=== PATIENT | male | born 1965 | race Caucasian/White ===

== ENCOUNTER 2017-05-15 11:15 | Day surgery (SDC) | payer OTHER ==
[~2017-05-15] VITALS: Ht 182.9 cm; Wt 103.4 kg
[~2017-05-15 11:15] MED LIST: HYDR12.58 PO; HYDROmorphone 2 MG/ML VIAL IV PRN; IV RINGERS,LACTATED 1000ML 1,000 ML IV SCH; LIDOCAINE 1% PF 2 ML VIAL. ID PRN; MORPHINE SULFATE 2 MG/ML DISP.SYRIN. IV PRN; ONDANSETRON PF 4 MG/2 ML VIAL. IV PRN; PROCHLORPERAZINE 10 MG/2 ML VIAL. IV PRN; fentaNYL PF VIAL 100 MCG/2 ML VIAL IV PRN
[2017-05-15] MEDS ORDERED: ROCURONIUM 100 MG/10 ML VIAL. ONE (11:58)
[2017-05-15] MEDS ORDERED: SUCCINYLCHOLINE 200 MG/10 ML VIAL. ONE (11:58)
[2017-05-15] MEDS ORDERED: PROPOFOL 20 ML IV ONE (11:58)
[2017-05-15] MEDS ORDERED: LIDOCAINE 2% PF Vial for OR 5 ML VIAL. ONE (11:58)
[2017-05-15] MEDS ORDERED: fentaNYL PF VIAL 100 MCG/2 ML VIAL ONE (12:00)
[2017-05-15] MEDS ORDERED: ONDANSETRON PF 4 MG/2 ML VIAL. ONE (13:55)
[2017-05-15] MEDS ORDERED: NEOSTIGMINE 10 MG/10 ML VIAL. ONE (13:55)
[2017-05-15] MEDS ORDERED: GLYCOPYRROLATE 1 MG/5 ML VIAL. ONE (13:55)
[2017-05-15] MEDS ORDERED: BUPIVACAINE-EPI 0.25%-1:200000 50 ML VIAL. INJ ONE (13:55)
[2017-05-15] MEDS ORDERED: ePHEDrine PF IN SALINE 50 MG/5 ML DISP.SYRIN IV ONE (14:01)
[2017-05-15] MEDS ORDERED: SEVOFLURANE 31 TO 60 MINUTES. IH ONE (14:27)
[2017-05-15] MEDS ORDERED: DEXAMETHASONE SOD PHOS 20 MG/5 ML VIAL. ONE (14:27)
--- NOTE | 2017-05-15 14:34 | PDOC4 ---
Operative Note Operative Note Date: 05/15/2017 Preoperative diagnosis: Recurrent left inguinal hernia Postoperative diagnosis: Same Procedure: Robotic-assisted laparoscopic left inguinal hernia repair with mesh Surgeon: Davy Specimen: None Dictation: Patient is a 52-year-old male who has a recurrent left inguinal hernia the procedure of robotic-assisted laparoscopic left inguinal hernia repair with mesh was explained to the patient in detail was benefits were also discussed including bleeding infection injury to intra-abdominal contents possibly necessitating further or open operations. He should seemed understanding gave both verbal and written consent to have the procedure performed. Patient was taken to the operating room placed in supine position general anesthesia was initiated once patient was asleep and intubated he was repositioned in the low lithotomy positioning and his abdomen was prepped and draped usual sterile fashion using ChloraPrep. Area just above the umbilicus injected with quarter percent Marcaine with epinephrine incisions made lead blade scalpel and a varies needle was placed within the abdomen creating pneumoperitoneum. This was complete and 8 mm da Pranay port was placed and the da Pranay camera was placed within the abdomen and abdomen was inspected no other at maladies were noted was noted that he had a left inguinal hernia with some area incarcerated sigmoid colon. At this 8 millimeter ports were placed one in the left mid abdomen one in the right mid abdomen. The da Pranay robot was brought in and docked all ports surgeon went to the robotic console and using a grasper and Endo Romario scissors the hernia content was reduced and the peritoneum was incised creating a flap inferiorly. [employer] director mesh was then placed over the hernia defect and the peritoneum was then closed over the mesh with a running V lock suture. The da Pranay robot was undocked all ports removed the pneumoperitoneum was reduced and the incision sites were all closed with 4 subcuticular Monocryl Mastisol Steri-Strips and island dressings were applied. Patient was waken expanded in the operating room taken to recovery in stable condition all sponge instrument needle counts listed as correct. Estimated blood loss 10 mL. KRISTIAN BISHOP MD May 15, 2017 14:34
--- NOTE | 2017-05-15 14:35 | DISCH ---
DISCHARGE INSTRUCTIONS Condition on Discharge Condition on Discharge: Stable Activity After Discharge Activity Instructions for Disc: Avoid exertion Other activity instructions: No lifting >20lbs for 2 weeks Diet after Discharge Diet after Discharge: Regular Wound Incision Care Other wound/incision instructi: May shower in 24 hours Contacting the after DC Call your doctor for: If your condition worsens Follow-Up Follow up with: Dr Bishop in 2 weeks KRISTIAN BISHOP MD May 15, 2017 14:35
[2017-05-15] MEDS ORDERED: KETOROLAC 30 MG/ML INJ. ONE (14:41)
[2017-05-15] MEDS: fentaNYL PF VIAL 100 MCG/2 ML VIAL IV PRN ×2 (14:46→14:53)
[2017-05-15] MEDS ORDERED: HYDR-971 PO (14:56)
[2017-05-15 15:39] VITALS: BP 139/74
[2017-05-15] MEDS ORDERED: HYDROcodone/APAP 5/325MG 1 TAB TABLET PO PRN (15:45)
== END 2017-05-15 16:27 | disposition home or self-care (01) ==
LOC: SURG 11:15
PROVIDERS: ATTEND Surgery
DX: K40.91 Unilateral inguinal hernia, without obstruction or gangrene, recurrent (principal); I10 Essential (primary) hypertension; M19.91 Primary osteoarthritis, unspecified site; Z87.39 Personal history of other diseases of the musculoskeletal system and connective tissue; Z72.89 Other problems related to lifestyle; Z72.0 Tobacco use
CPT/HCPCS: 49651; C1781; J0330; J0690; J0780; J1100; J1885; J2405; J2704; J2710; J3010; J3490; J2001

== ENCOUNTER → 2019-05-20 | Outpatient (CLI) | payer OTHER ==
[~2019-05-20] MED LIST changes: +HYDR-3164 PO; -HYDROmorphone 2 MG/ML VIAL IV PRN; -IV RINGERS,LACTATED 1000ML 1,000 ML IV SCH; -LIDOCAINE 1% PF 2 ML VIAL. ID PRN; -MORPHINE SULFATE 2 MG/ML DISP.SYRIN. IV PRN; -ONDANSETRON PF 4 MG/2 ML VIAL. IV PRN; -PROCHLORPERAZINE 10 MG/2 ML VIAL. IV PRN; -fentaNYL PF VIAL 100 MCG/2 ML VIAL IV PRN
--- NOTE | 2019-05-20 10:38 | RAD ---
EXT NON VASC LEFT History: Left groin pain Comparison: None. Findings: Multiple sonographic images of left groin region are submitted. There is a left groin hernia with neck estimated about 2.1 cm cyst, probably contains only fat. Impression: 1. There is a left groin hernia. Electronically signed by: Jung Salgado MD (05/20/2019 10:35 AM) [id number]
== END | disposition home or self-care (01) ==
LOC: US 09:47
PROVIDERS: ATTEND Surgery
DX: K40.90 Unilateral inguinal hernia, without obstruction or gangrene, not specified as recurrent (principal)
CPT/HCPCS: 76881

== ENCOUNTER 2019-05-28 06:29 | Day surgery (SDC) | payer OTHER ==
[~2019-05-28] VITALS: Ht 182.9 cm; Wt 97.5 kg
[~2019-05-28 06:29] MED LIST changes: +BUPIVACAINE-EPI 0.25%-1:200000 MPF 30 ML VIAL. INJ ONE
[2019-05-28] MEDS ORDERED: ONDANSETRON PF 4 MG/2 ML VIAL. IV PRN (07:00)
[2019-05-28] MEDS ORDERED: HYDROmorphone 2 MG/ML VIAL IV PRN (07:00)
[2019-05-28] MEDS ORDERED: IV RINGERS,LACTATED 1000ML 1,000 ML IV SCH (07:00)
[2019-05-28] MEDS ORDERED: fentaNYL PF VIAL 100 MCG/2 ML VIAL IV PRN (07:00)
[2019-05-28] MEDS ORDERED: ACETAMINOPHEN 500 MG TABLET PO ONE (07:00)
[2019-05-28] MEDS ORDERED: MORPHINE SULFATE 2 MG/ML VIAL. IV PRN (07:00)
[2019-05-28] MEDS ORDERED: PROCHLORPERAZINE 10 MG/2 ML VIAL. IV PRN (07:00)
[2019-05-28] MEDS ORDERED: SEVOFLURANE 61 TO 120 MINUTES. IH ONE (07:24)
[2019-05-28] MEDS ORDERED: NEOSTIGMINE METHYLSULFATE 5 MG/5 ML SYRINGE. ONE (07:24)
[2019-05-28] MEDS ORDERED: GLYCOPYRROLATE 1 MG/5 ML VIAL. ONE (07:25)
[2019-05-28] MEDS ORDERED: KETOROLAC 30 MG/ML VIAL. ONE (07:25)
[2019-05-28] MEDS ORDERED: fentaNYL PF VIAL 100 MCG/2 ML VIAL ONE (07:25)
[2019-05-28] MEDS ORDERED: LIDOCAINE 2% PF 5 ML VIAL. ONE (07:25)
[2019-05-28] MEDS ORDERED: ROCURONIUM 50 MG/5 ML VIAL. ONE (07:25)
[2019-05-28] MEDS ORDERED: DEXAMETHASONE SOD PHOS 20 MG/5 ML VIAL. ONE (07:25)
[2019-05-28] MEDS ORDERED: MIDAZOLAM HCL/PF 2 MG/2 ML VIAL. ONE (07:25)
[2019-05-28] MEDS ORDERED: ONDANSETRON PF 4 MG/2 ML VIAL. ONE (07:25)
[2019-05-28] MEDS ORDERED: PROPOFOL 20 ML IV ONE (07:25)
[2019-05-28] MEDS ORDERED: ceFAZolin 2GM PREMIX 2 GM/50 ML BAG IV ONE (08:00)
[2019-05-28] MEDS ORDERED: PHENYLEPHRINE in 0.9% NACL PF 1 MG/10 ML SYRINGE. IV ONE (08:19)
[2019-05-28] MEDS ORDERED: ePHEDrine PF IN SALINE 50 MG/10 ML SYRINGE. IV ONE (08:22)
--- NOTE | 2019-05-28 09:34 | PDOC4 ---
Operative Note Operative Note Date: 05/28/2019 Preoperative diagnosis: Recurrent left inguinal hernia direct Postoperative diagnosis: Same Procedure: Robotic-assisted laparoscopic left inguinal hernia repair with mesh Surgeon: Davy Specimen: None Dictation: Patient is a 54-year-old male who has had bilateral inguinal hernia repairs had recurrent on the left side underwent repair about a year and a half ago subsequent layers developed another bulge in the left groin and pain consistent with a hernia. Procedure of robotic-assisted laparoscopic left internal hernia repair with mesh was explained to the patient in detail risks benefits were also discussed including bleeding infection injury to intra- abdominal contents possibly necessitating further or open operations alternatives to this procedure also discussed with the patient who seemed to understand and gave both verbal and written consent to have the procedure performed. Patient was taken to the operating room placed in supine position general anesthesia was initiated once patient was asleep and intubated is placed in low lithotomy positioning and his abdomen was prepped and draped usual sterile fashion using ChloraPrep. An area just above the umbilicus was injected with quarter percent Marcaine with epinephrine and incision was made with an 11 blade scalpel and a Veress needle was placed within the abdomen creating pneumoperitoneum once this was complete a da Pranay 8 mm port was placed and the 30 camera was placed within the abdomen and inspected was noted in the left groin there was a direct inguinal hernia. A 8mm da Pranay port was placed in the left mid abdomen and one in the right mid abdomen surgeon went to the robotic console using grasper and Endo Romario scissors the peritoneum was taken off of the previous mesh in the left groin and the hernia was reduced. A large Bard 3-D max mesh for the left side was then placed over the hernia defect and the peritoneum was closed over the mesh with a running 20V LOC absorbable suture. The da Pranay robot was undocked all ports removed the pneumoperitoneum was reduced incisions were all closed with 4-0 subcuticular Monocryl Mastisol Steri-Strips and island dressings were applied. Patient was awakened and extubated in the operating room taken to recovery in stable condition all sponge instrument needle counts listed as correct. Estimated blood loss 5 mL KRISTIAN BISHOP MD May 28, 2019 09:33
--- NOTE | 2019-05-28 09:36 | DISCH ---
DISCHARGE INSTRUCTIONS Condition on Discharge Condition on Discharge: Stable Activity After Discharge Activity Instructions for Disc: Avoid exertion Other activity instructions: no lifting more than 20 pounds for 2 weeks Diet after Discharge Diet after Discharge: Regular Wound Incision Care Other wound/incision instructi: May shower in 24 hours Contacting the [facility] after DC Call your doctor for: If your condition worsens Follow-Up Follow up with: Dr. Bishop in 2 weeks KRISTIAN BISHOP MD May 28, 2019 09:36
[2019-05-28] MEDS ORDERED: CELECOXIB 100 MG CAPSULE. PO ONE (10:00)
[2019-05-28] MEDS ORDERED: CELE200C PO (10:07)
[2019-05-28] MEDS: fentaNYL PF VIAL 100 MCG/2 ML VIAL IV PRN ×2 (10:07→10:17)
[2019-05-28] MEDS ORDERED: GABA600T7 PO (10:08)
[2019-05-28] MEDS ORDERED: GABAPENTIN 300 MG CAPSULE. PO SCH (10:30)
[2019-05-28 10:35] VITALS: BP 114/71
[2019-05-28] MEDS ORDERED: CELECOXIB 100 MG CAPSULE. PO SCH (21:00)
== END 2019-05-28 10:40 | disposition home or self-care (01) ==
LOC: SURG 06:29
PROVIDERS: ATTEND Surgery
DX: K40.91 Unilateral inguinal hernia, without obstruction or gangrene, recurrent (principal); I11.9 Hypertensive heart disease without heart failure; K21.9 Gastro-esophageal reflux disease without esophagitis; E66.9 Obesity, unspecified; Z68.27 Body mass index [BMI] 27.0-27.9, adult; Z87.39 Personal history of other diseases of the musculoskeletal system and connective tissue; Z87.891 Personal history of nicotine dependence; Z72.89 Other problems related to lifestyle
CPT/HCPCS: 49651; A7015; C1781; J0171; J0696; J1100; J1885; J2001; J2250; J2370; J2405; J2704; J2710; J3010; J3490; J7120; S2900

== ENCOUNTER → 2021-04-03 | Outpatient (CLI) | payer BC, OTHER ==
[~2021-04-03] MED LIST changes: -BUPIVACAINE-EPI 0.25%-1:200000 MPF 30 ML VIAL. INJ ONE; +CELE200C PO; +GABA600T7 PO
--- NOTE | 2021-04-03 10:05 | KCIC ---
EXAM: Abdomen and pelvis CT without intravenous contrast. HISTORY: Left groin pain. Hernia repair. TECHNIQUE: Computed tomographic images of the abdomen and pelvis were obtained without contrast. Mult iplanar reformatting was performed. *One or more of the following individualized dose reduction techniques were utilized for this examina tion: 1. Automated exposure control. 2. Adjustment of the mA and/or kV according to patient size. 3. Use of iterative reconstruction technique. COMPARISON: None. FINDINGS: Evaluation of the lower thorax demonstrates lingular and medial right middle lobe atelectas is or scarring. There is no infiltrate, pleural effusion or suspicious pulmonary nodule. The heart is normal in size. There is calcified atherosclerotic plaque involving the coronary arteries. No hepatic lesion is seen on this noncontrast exam. The gallbladder, pancreas, spleen, adrenal glands are unremarkable. There is no evidence of nephroureterolithiasis. There is no hydronephrosis. No juanito id or cystic renal lesion is seen on this noncontrast exam. The prostate is mildly enlarged. The urin abe bladder is unremarkable. There is no appendicitis. There is no bowel obstruction. There is no abnormal bowel wall thickening. There is a small fat-containing left inguinal hernia. There is evidence of prior left inguinal hernia repair. There is slight fatty stranding within the left lower quadrant likely due to postoperative s car/granulation tissue rather than acute inflammation. There is a tiny fat-containing supraumbilical hernia and umbilical hernia. No herniated loop of bowel is seen. There is calcified atherosclerotic plaque involving the aorta and iliac bifurcation. There are multip le prominent retroperitoneal lymph nodes. For reference purposes, there is a right iliac chain lymph node measuring 2.7 cm in long axis. There are degenerative changes involving the spine. There is no a cute or suspicious osseous lesion. IMPRESSION: 1. Small fat-containing left inguinal hernia and evidence of prior inguinal hernia repair. There is s light stranding within the left lower quadrant due to postoperative scar/granulation tissue rather th an acute inflammation. There are also tiny fat-containing umbilical and superior umbilical hernias. 2. Multiple prominent retroperitoneal lymph nodes. These are nonspecific and may be reactive in etiol ogy. In the absence of prior studies to assess for interval change, short-term follow-up may be perfo rmed to confirm stability or resolution and exclude underlying neoplasm. 3. Mild prostatomegaly. Electronically signed by: Vanessa Sinclair MD (04/03/2021 10:02 AM) [id number]
== END ==
LOC: KCIC CT 08:30
PROVIDERS: ATTEND Surgery
DX: N40.0 Benign prostatic hyperplasia without lower urinary tract symptoms (principal); K40.90 Unilateral inguinal hernia, without obstruction or gangrene, not specified as recurrent; I25.10 Atherosclerotic heart disease of native coronary artery without angina pectoris; I70.0 Atherosclerosis of aorta; R10.30 Lower abdominal pain, unspecified; M47.819 Spondylosis without myelopathy or radiculopathy, site unspecified; Z98.890 Other specified postprocedural states
CPT/HCPCS: 74176

== ENCOUNTER 2021-05-10 07:36 | Day surgery (SDC) | payer BC ==
[~2021-05-10] VITALS: Ht 180.3 cm; Wt 97.5 kg
[~2021-05-10 07:36] MED LIST changes: +ACETAMINOPHEN 500 MG TABLET PO PRN; +HYDROmorphone 2 MG/ML VIAL IVP PRN; +IV RINGERS,LACTATED 1000ML 1,000 ML IV SCH; +LIDOCAINE 2% PF 5 ML VIAL. ONE; +PROCHLORPERAZINE 10 MG/2 ML VIAL. IVP PRN; +PROPOFOL 10 MG/ML (20ML) VIAL. IV ONE; +ROCURONIUM 50 MG/5 ML VIAL. ONE; +fentaNYL PF VIAL 100 MCG/2 ML VIAL IVP PRN
[2021-05-10] MEDS ORDERED: BUPIVACAINE-EPI 0.5%-1:200000 MPF 30 ML VIAL. ONE (07:40)
[2021-05-10] MEDS ORDERED: INSULIN LISPRO 100 UNIT/ML 3ML VIAL for OP,RR ONLY. SQ PRN (07:45)
[2021-05-10] MEDS ORDERED: ATOR10TA60 PO (08:02)
[2021-05-10] MEDS ORDERED: TRAZ-118 PO (08:02)
[2021-05-10] MEDS ORDERED: LISI1TAB20 PO (08:02)
[2021-05-10] MEDS ORDERED: METF10007 PO (08:02)
[2021-05-10 08:06] VITALS: BP 137/87
[2021-05-10] MEDS ORDERED: INSULIN LISPRO 100 UNIT/ML 3ML VIAL for OP,RR ONLY. SQ ONE (08:10)
[2021-05-10] MEDS ORDERED: fentaNYL PF VIAL 100 MCG/2 ML VIAL ONE (09:45)
[2021-05-10] MEDS ORDERED: MIDAZOLAM HCL/PF 2 MG/2 ML VIAL. ONE (09:46)
[2021-05-10] MEDS ORDERED: PROPOFOL 10 MG/ML (20ML) VIAL. IV ONE (10:16)
[2021-05-10] MEDS ORDERED: ONDANSETRON PF 4 MG/2 ML VIAL. ONE (10:16)
[2021-05-10] MEDS ORDERED: DEXAMETHASONE SOD PHOS 4 MG/ML VIAL ONE (10:16)
--- NOTE | 2021-05-10 10:43 | PDOC4 ---
Operative Note Operative Note Date: May 102020 at 1041 Preoperative diagnosis recurrent left inguinal hernia Postoperative diagnosis the same Procedure: Left inguinal hernia with mesh Surgeon: Davy Specimen: None Dictation: Patient is a 56-year-old male who had previous laparoscopic left inguinal hernia repair has recurrence of the hernia. Procedure of open left inguinal hernia repair with mesh was explained to the patient detail risk benefits were also discussed occluding bleeding infection alternatives this procedure also discussed with the patient who seemed to understand and gave both verbal and written consent to have procedure performed. Patient was taken to the operating room placed in the supine position general anesthesia was initiated once patient was sleeping intubated his left and right groin were prepped and draped usual sterile fashion using ChloraPrep. An area over the external canal was injected with quarter percent Marcaine with epinephrine incision made with 10 blade scalpel is carried down through subcutaneous tissues electrocautery right hemostasis down to the external fascia external fascia was partially open with 15 blade scalpel further open electrocautery the cord structures were encircled with a [place] drain there was a small hernia sac. To be direct which was freed up from its adherent tissues with sharp and blunt dissection inverted through the hernia defect and a phasic's mesh plug was then placed within the defect a mesh overlay was then placed on the floor the inguinal canal this was sewn into place with a running 3-0 Prolene suture. Cord structures returned to the floor the inguinal canal and the deep subcutaneous layers were closed with a running 3-0 Vicryl suture skin was reapproximated for subcuticular Monocryl Mastisol Steri-Strips and island dressings were applied. Patient was awakened and extubated in the operating room taken to recovery in stable condition all sponge instrument needle counts listed as correct estimated blood loss 10 mL KRISTIAN BISHOP MD May 10, 2021 10:43
[2021-05-10] MEDS ORDERED: OXYC-325 PO (10:45)
--- NOTE | 2021-05-10 10:47 | DISCH ---
DISCHARGE INSTRUCTIONS Condition on Discharge Condition on Discharge: Stable Activity After Discharge Activity Instructions for Disc: Avoid exertion Other activity instructions: No lifting more than 20 pounds for 4 weeks Diet after Discharge Diet after Discharge: Regular Wound Incision Care Other wound/incision instructi: Farrah shower in 24-hour Contacting the after DC Call your doctor for: If your condition worsens Follow-Up Follow up with: Dr. Bishop in 2 weeks KRISTIAN BISHOP MD May 10, 2021 10:46
[2021-05-10] MEDS ORDERED: MORPHINE SULFATE 2 MG/ML INJ. ONE (11:01)
[2021-05-10] MEDS: MORPHINE SULFATE 2 MG/ML INJ. IVP PRN ×2 (11:02→11:17)
[2021-05-10] MEDS ORDERED: HYDROcodone/APAP 5/325MG 1 TAB TABLET PO ONE (11:15)
[2021-05-10 11:25] VITALS: BP 132/88
== END 2021-05-10 11:55 | disposition home or self-care (01) ==
LOC: SURG 07:36
PROVIDERS: ATTEND Surgery
DX: K40.91 Unilateral inguinal hernia, without obstruction or gangrene, recurrent (principal); I10 Essential (primary) hypertension; G47.30 Sleep apnea, unspecified; E66.9 Obesity, unspecified; M19.90 Unspecified osteoarthritis, unspecified site; Z79.899 Other long term (current) drug therapy; Z98.890 Other specified postprocedural states; Z87.891 Personal history of nicotine dependence; Z72.89 Other problems related to lifestyle
CPT/HCPCS: 82962; A4364; A4452; A4930; C1781; J0690; J1100; J1815; J2250; J2270; J2405; J2704; J3010